=== PATIENT | male | born 1980 | race Hispanic/Latino ===

== ENCOUNTER 2020-04-06 09:40 | Emergency (ER) | payer OTHER ==
[2020-04-06 10:05] LABS: BASOPHILS % (AUTO) 0.5 % (0.0-5.0); EOSINOPHILS % (AUTO) 1.2 % (0.0-8.0); HEMATOCRIT 43.6 % (42-54); LYMPHOCYTES % (AUTO) 42.6 % (21.0-51.0); MEAN CORPUSCULAR HEMOGLOBIN 31.2 pg (27.0-33.0); MEAN CORPUSCULAR HGB CONC 34.2 g/dL (32.0-36.0); MEAN CORPUSCULAR VOLUME 91.2 fL (79-99); MONOCYTES % (AUTO) 10.9 % (3.0-13.0); NEUTROPHILS % (AUTO) 44.6 % (40.0-77.0); PLATELET COUNT (AUTO) 249 K/uL (130-400); RED BLOOD CELL COUNT(AUTO) 4.78 MIL/uL (4.50-6.20); RED CELL DISTRIBUTION WIDTH 13.1 % (11.0-15.5); WHITE BLOOD COUNT (AUTO) 8.1 K/uL (4.8-10.8)
[2020-04-06 10:12] LABS: CREATININE 1.1 mg/dL (0.5-1.5); POTASSIUM 3.5 mmol/L (3.5-5.1)
[2020-04-06 10:13] LABS: AMPHET/METH SCREEN,URINE NEGATIVE (NEGATIVE); BARBITURATE SCREEN, URINE NEGATIVE (NEGATIVE); BENZODIAZEPINES SCREEN,URINE POSITIVE (NEGATIVE); CANNABINOID SCREEN,URINE NEGATIVE (NEGATIVE); COCAINE SCREEN,URINE POSITIVE (NEGATIVE); OPIATE SCREEN,URINE NEGATIVE (NEGATIVE); PHENCYCLIDINE SCREEN,URINE NEGATIVE (NEGATIVE)
[2020-04-06 10:16] LABS: APPEARANCE,URINE CLOUDY (CLEAR); BILIRUBIN,URINE SMALL (NEGATIVE); COLOR,URINE YELLOW (YELLOW); GLUCOSE, URINE (UA) NEGATIVE (NEGATIVE); KETONES,URINE 15 mg/dL (NEGATIVE); LEUKOCYTE ESTERASE ,URINE NEGATIVE (NEGATIVE); NITRATE,URINE NEGATIVE (NEGATIVE); OCCULT BLOOD,URINE LARGE (NEGATIVE); PROTEIN,URINE TRACE mg/dL (NEGATIVE)
[2020-04-06 10:16] LABS: ALBUMIN 3.7 g/dL (3.5-5.0); TOTAL PROTEIN, SERUM 7.4 g/dL (6.0-8.3)
[2020-04-06] MEDS ORDERED: DiphenhydrAMINE HCL 50 MG/ML VIAL ONE (10:18)
[2020-04-06] MEDS ORDERED: SODIUM CHLORIDE 0.9% 1000ML 1,000 ML IV ONE (10:18)
[2020-04-06] MEDS ORDERED: KETOROLAC TROMETHAMINE 30MG/ML ONE (10:19)
[2020-04-06] MEDS ORDERED: PROCHLORPERAZINE EDISYLATE 10 MG/2 ML VIAL ONE (10:19)
[2020-04-06] MEDS ORDERED: FAMOTIDINE/PF 20 MG/2 ML VIAL IV ONE (10:20)
[2020-04-06 10:25] LABS: RBC,URINE >100 /HPF (0-1); WBC,URINE 0-1 /HPF (0-1)
[2020-04-06 10:26] LABS: BACTERIA,URINE Rare /HPF (None Seen); MUCUS,URINE Few LPF (None Seen); SQUAMOUS EPITHELIAL CELL,UR Rare /HPF (0-2)
[2020-04-06] MEDS ORDERED: IOHEXOL-350 75 ML VIAL IV ONE (10:30)
[2020-04-06] MEDS ORDERED: MORPHINE SULFATE 2 MG/ML 1ML SYG ONE (12:12)
== END 2020-04-06 12:57 | disposition home or self-care (01) ==
LOC: EDH 09:40
DX: N20.2 Calculus of kidney with calculus of ureter (principal); F14.10 Cocaine abuse, uncomplicated; F13.10 Sedative, hypnotic or anxiolytic abuse, uncomplicated; R11.0 Nausea; Z72.0 Tobacco use
CPT/HCPCS: 36415; 74177; 80053; 80305; 81001; 83690; 85025; 96361; 96374; 96375; 99285; J0780; J1200; J1885; J3490; J7030; Q9967

== ENCOUNTER 2021-12-27 09:14 | Inpatient (IN) | payer OTHER ==
[~2021-12-27] VITALS: Ht 170.2 cm; Wt 83.6 kg
[2021-12-27 09:33] LABS: BASOPHILS % (AUTO) 0.5 % (0.0-5.0); EOSINOPHILS % (AUTO) 0.5 % (0.0-8.0); HEMATOCRIT 40.4 % (42-54); LYMPHOCYTES % (AUTO) 20.3 % (21.0-51.0); MEAN CORPUSCULAR HEMOGLOBIN 31.3 pg (27.0-33.0); MEAN CORPUSCULAR HGB CONC 34.2 g/dL (32.0-36.0); MEAN CORPUSCULAR VOLUME 91.6 fL (79-99); MONOCYTES % (AUTO) 9.8 % (3.0-13.0); NEUTROPHILS % (AUTO) 68.6 % (40.0-77.0); PLATELET COUNT (AUTO) 248 K/uL (130-400); RED BLOOD CELL COUNT(AUTO) 4.41 MIL/uL (4.50-6.20); RED CELL DISTRIBUTION WIDTH 13.2 % (11.0-15.5); WHITE BLOOD COUNT (AUTO) 8.7 K/uL (4.8-10.8)
[2021-12-27 09:44] LABS: CARBON DIOXIDE 25 mmol/L (21-32); CHLORIDE 104 mmol/L (101-111); CREATININE 0.9 mg/dL (0.5-1.5); GLOMERULAR FILTR. RATE CALC 99 mL/min (>60); GLUCOSE,RANDOM 100 mg/dL (70-105); INR 0.97 (0.85-1.15); POTASSIUM 3.2 mmol/L (3.5-5.1); PROTHROMBIN TIME 10.6 SEC (9.6-11.6); SODIUM SERUM 140 mmol/L (136-145); UREA NITROGEN, BLOOD 13 mg/dL (7-18)
[2021-12-27 09:45] LABS: PARTIAL THROMBOPLASTIN TIME 26.1 SEC (26.3-35.5)
[2021-12-27 09:57] LABS: ALANINE AMINOTRANSFERASE 23 U/L (12-78); ALBUMIN 3.4 g/dL (3.5-5.0); ALCOHOL, BLOOD < 3 mg/dL (0-10); ASPARTATE AMINOTRANSFERASE 17 U/L (10-37); BILIRUBIN,TOTAL 0.7 mg/dL (0.2-1.0); LDL DIRECT 116 mg/dL (0-99)
[2021-12-27 10:05] LABS: SALICYLATE < 2.8 mg/dL (2.8-20.0)
[2021-12-27 10:06] LABS: ACETAMINOPHEN < 1 mcg/mL (10-29); CREATINE KINASE, TOTAL 559 U/L (21-232)
[2021-12-27 10:12] LABS: B-TYPE NATRIURETIC PEPTIDE < 5 pg/mL (0-100)
[2021-12-27 10:12] LABS: ABG BASE EXCESS -1.4 mmol/L (-2.0-3.0); ABG HCO3 23.9 mmol/L (21.0-28.0); ABG OXYGEN SATURATION 98.3 % (95.0-99.0); ABG PCO2 42 mmHg (35-48)
[2021-12-27] MEDS ORDERED: 0.9%NACL 1000ML 1,000 ML IV SCH (10:30)
[2021-12-27 10:37] LABS: APPEARANCE,URINE Clear (CLEAR); BILIRUBIN,URINE Negative (NEGATIVE); COLOR,URINE Dark Yellow (YELLOW); GLUCOSE, URINE (UA) Negative (NEGATIVE); KETONES,URINE 15 mg/dL (NEGATIVE); LEUKOCYTE ESTERASE ,URINE Negative (NEGATIVE); NITRATE,URINE Negative (NEGATIVE); OCCULT BLOOD,URINE Small (NEGATIVE); PH,URINE 5.5 (5.0-8.0); PROTEIN,URINE POS 1+ mg/dL (NEGATIVE)
[2021-12-27 10:47] LABS: BACTERIA,URINE Rare /HPF (None Seen); SQUAMOUS EPITHELIAL CELL,UR Rare /HPF (0-2); WBC,URINE 0-1 /HPF (0-1)
[2021-12-27 10:53] LABS: AMPHET/METH SCREEN,URINE NEGATIVE (NEGATIVE); BARBITURATE SCREEN, URINE NEGATIVE (NEGATIVE); BENZODIAZEPINES SCREEN,URINE NEGATIVE (NEGATIVE); CANNABINOID SCREEN,URINE NEGATIVE (NEGATIVE); COCAINE SCREEN,URINE POSITIVE (NEGATIVE); OPIATE SCREEN,URINE NEGATIVE (NEGATIVE); PHENCYCLIDINE SCREEN,URINE NEGATIVE (NEGATIVE)
[2021-12-27] MEDS ORDERED: ACETAMINOPHEN 325 MG TAB PO PRN ×2 (11:00)
[2021-12-27] MEDS ORDERED: ONDANSETRON 4MG INJ IV PRN (11:00)
[2021-12-27] MEDS ORDERED: ASPIRIN 81MG CHEW TAB PO ONE (11:00)
[2021-12-27] MEDS ORDERED: GADOTERATE MEGLUMINE 10 MMOL/20 ML VIAL IV ONE (11:25)
[2021-12-27] MEDS: ZOSYN 3.375GM +NS 50ML IV SCH ×2 (12:08→22:05)
[2021-12-27] MEDS: 0.9%NACL 1000ML 1,000 ML IV SCH ×2 (12:08→22:06)
[2021-12-27 12:10] LABS: THYROID STIMULATING HORMONE 1.22 uIU/mL (0.36-3.74)
[2021-12-27 15:18] VITALS: BP 134/63
[2021-12-27] MEDS ORDERED: NIFEDIPINE ER 30 MG TAB PO SCH (20:30)
[2021-12-27] MEDS ORDERED: KCL 20 MEQ ERTAB PO SCH (20:30)
[2021-12-27] MEDS ORDERED: LORAZEPAM 2 MG/ML 1 ML VIAL IVP PRN ×2 (20:30)
[2021-12-27 20:34] VITALS: BP 150/97
[2021-12-27] MEDS: FAMOTIDINE 20MG VIAL IV SCH (22:04)
[2021-12-27 23:30] VITALS: BP 130/71
[2021-12-28 04:32] VITALS: BP 138/85
[2021-12-28 04:35] VITALS: BP 138/85
[2021-12-28 04:35] LABS: BASOPHILS % (AUTO) 0.4 % (0.0-5.0); EOSINOPHILS % (AUTO) 4.3 % (0.0-8.0); HEMATOCRIT 42.3 % (42-54); MEAN CORPUSCULAR HEMOGLOBIN 30.7 pg (27.0-33.0); MEAN CORPUSCULAR HGB CONC 32.6 g/dL (32.0-36.0); MEAN CORPUSCULAR VOLUME 94.2 fL (79-99); MONOCYTES % (AUTO) 9.2 % (3.0-13.0); NEUTROPHILS % (AUTO) 51.8 % (40.0-77.0); PLATELET COUNT (AUTO) 230 K/uL (130-400); RED BLOOD CELL COUNT(AUTO) 4.49 MIL/uL (4.50-6.20); RED CELL DISTRIBUTION WIDTH 13.7 % (11.0-15.5); WHITE BLOOD COUNT (AUTO) 6.8 K/uL (4.8-10.8)
[2021-12-28] MEDS ORDERED: 0.9%NACL 50ML 50 ML IV ONE (04:52)
[2021-12-28] MEDS: ZOSYN 3.375GM +NS 50ML IV SCH ×2 (04:55→12:22)
[2021-12-28 05:04] LABS: CREATININE 1.2 mg/dL (0.5-1.5); MAGNESIUM 2.1 mg/dL (1.80-2.40); PHOSPHORUS 2.9 mg/dL (2.5-4.9); POTASSIUM 3.8 mmol/L (3.5-5.1)
[2021-12-28 08:00] VITALS: BP 130/58
[2021-12-28] MEDS ORDERED: NIFEDIPINE ER 30 MG TAB PO SCH (09:00)
[2021-12-28] MEDS ORDERED: ENOXAPARIN SODIUM 40 MG/0.4 ML SYRINGE SQ SCH (09:00)
[2021-12-28] MEDS ORDERED: ASPIRIN 81MG CHEW TAB PO SCH (09:00)
[2021-12-28] MEDS: FAMOTIDINE 20MG VIAL IV SCH (09:32)
[2021-12-28 11:45] VITALS: BP 128/86
[2021-12-28] MEDS ORDERED: NIFE-40 PO (12:53)
== END 2021-12-28 14:17 | disposition home or self-care (01) | DRG 918 ==
LOC: EDH 09:14 → EDHIP 09:15 → 2AH 13:41 → 4CH 12-28 06:18
PROVIDERS: ADMIT Internal Medicine; ATTEND Internal Medicine
DX: T40.5X1A Poisoning by cocaine, accidental (unintentional), initial encounter (principal); M62.82 Rhabdomyolysis; F14.20 Cocaine dependence, uncomplicated; E87.6 Hypokalemia; E86.1 Hypovolemia; Z85.47 Personal history of malignant neoplasm of testis; Z20.822 Contact with and (suspected) exposure to COVID-19; R06.82 Tachypnea, not elsewhere classified; F17.210 Nicotine dependence, cigarettes, uncomplicated; Y92.89 Other specified places as the place of occurrence of the external cause
CPT/HCPCS: 36415; 36600; 70450; 70551; 71045; 73100; 73120; 80048; 80053; 80305; 81001; 82140; 82550; 82803; 82948; 83605; 83721; 83735; 83874; 83880; 84100; 84145; 84443; 84484; 85025; 85610; 85651; 85730; 86140; 87426; 93005; G0378; G0481; J1650; J2060; J2543; J3490; J7030